=== PATIENT | male | born 1940 | race Caucasian/White ===

== ENCOUNTER → 2022-05-14 | Outpatient (CLI) | payer OTHER ==
--- NOTE | 2022-05-14 15:00 | CT ---
EXAMINATION TYPE: CT sinus wo con DATE OF EXAM: 05/14/2022 COMPARISON: None HISTORY: R42 DIZZINESS AND GIDDINESS Unenhanced CT of the paranasal sinuses was performed in the axial and coronal planes. Bone and soft tissue settings are submitted. The paranasal sinuses demonstrate normal aeration and development. Mild mucoperiosteal thickening involving the maxillary sinuses. Opacification right anterior superior ethmoid air cells. There is also opacification of the right ostiomeatal unit. Left ostiomeatal unit is patent. Remaining paranasal sinuses are well-aerated. The nasal septum is midline. No bony destructive changes are seen within the field of view. IMPRESSION: Chronic sinusitis as noted with obstruction of the right ostiomeatal unit.
--- NOTE | 2022-05-14 15:44 | CT ---
EXAMINATION TYPE: CT brain wo con DATE OF EXAM: 05/14/2022 COMPARISON: None HISTORY: 81-year-old male R42, dizziness and giddiness TECHNIQUE: Examination was done in axial plane without intravenous contrast. Coronal and sagittal r econstructions performed. CT DLP: mGycm Automated exposure control for dose reduction was used. FINDINGS: There is no evidence of acute intracranial hemorrhage, acute ischemic changes, mass, mass-effect, or extra-axial fluid collection. There is no effacement of cerebral sulci or basal subarachnoid cister ns. There is no midline shift. Nascimento-white matter distinction is preserved. Mild generalized supratentorial volume loss. Mild ventricular prominence likely secondary to central cerebral atrophy. Mild white matter hypodensities in both cerebral hemispheres. After scattered calci fications in the bilateral carotid siphons and proximal V4 segments bilateral vertebral arteries. Mastoid air cells remain pneumatized. Paranasal sinuses reported separately rightward nasal septal deviation. IMPRESSION: Mild generalized atrophy and mild burden of chronic small vessel ischemic disease. No acute intracran ial abnormality seen. Paranasal sinuses reported separately. Rightward nasal septal deviation.
== END | disposition home or self-care (01) ==
LOC: RADCTMAIN 13:41
DX: J32.9 Chronic sinusitis, unspecified (principal); J34.89 Other specified disorders of nose and nasal sinuses
CPT/HCPCS: 70450; 70486

== ENCOUNTER → 2023-02-09 | Outpatient (CLI) | payer OTHER ==
[2023-02-09 14:42] LABS: African American GFR (CKD) >90 (>60 ml/min/1.73 sqM); Blood Urea Nitrogen 14 mg/dL (9-20); Non-African American GFR(CKD) 84 (>60 ml/min/1.73 sqM)
--- NOTE | 2023-02-09 18:38 | CT ---
EXAMINATION TYPE: CT abdomen wo/w con CT DLP: 2648.90 mGycm, Automated exposure control for dose reduction was used. DATE OF EXAM: 02/09/2023 3:16 PM COMPARISON: None CLINICAL INDICATION:Male, 82 years old with history of R10.10 abdominal pain; upper abdominal pain x few weeks. TECHNIQUE: Standard CT of the abdomen before and after the uneventful administration of 100 cc of I sovue-300 intravenous contrast. Oral contrast was administered. Coronal and sagittal reformats were p erformed. FINDINGS: LOWER CHEST: Visualized lung bases are clear. Coronary artery calcifications. ABDOMEN LIVER: Calcified granulomas within the left hepatic lobe. Right hepatic lobe 1.5 cm cyst. GALLBLADDER AND BILE DUCTS: Unremarkable. PANCREAS: Unremarkable. SPLEEN: Couple of calcified granulomas. Subcentimeter hypodense focus within the superior aspect whic h is too small characterize but likely represents a benign lesion. ADRENAL GLANDS: Unremarkable. KIDNEYS AND URETERS: No evidence of hydronephrosis or renal calculus. The is enhance symmetrically. S ubcentimeter hypodense focus within the cortex of the left kidney which is too small characters but l ikely represents a cyst. Contrast is demonstrated within both collecting systems on the delayed phase . STOMACH AND BOWEL: Stomach and duodenum are unremarkable.Colonic diverticulosis without evidence for acute diverticulitis. Enteric contrast reaches the mid small bowel. No evidence of bowel obstruction. PERITONEUM: No evidence of pneumoperitoneum or free fluid. VASCULATURE: Moderate atherosclerotic calcifications are present throughout the abdominal aorta and i ts branches. No evidence of aortic aneurysm. Infrarenal abdominal aortic ectasia measuring up to 2.6 cm. MUSCULOSKELETAL: No acute osseous abnormalities. Mild disc degeneration changes are present throughou t the thoracolumbar spine. LYMPH NODES: No gross evidence for lymphadenopathy. SOFT TISSUE/ABDOMINAL WALL: Unremarkable IMPRESSION: 1. No acute abdominal process. 2. Colonic diverticulosis without evidence for acute diverticulitis. 3. Infrarenal abdominal aortic ectasia measuring up to 2.6 cm.
== END | disposition home or self-care (01) ==
LOC: RADCTMAIN 13:44
DX: I77.811 Abdominal aortic ectasia (principal); K57.30 Diverticulosis of large intestine without perforation or abscess without bleeding; R10.10 Upper abdominal pain, unspecified
CPT/HCPCS: 82565; 84520; 74170; 36415; Q9967

== ENCOUNTER → 2023-10-21 | Outpatient (CLI) | payer OTHER ==
--- NOTE | 2023-10-26 16:16 | CT ---
EXAMINATION TYPE: CT brain wo con CT DLP: 1147.30 mGycm, Automated exposure control for dose reduction was used. DATE OF EXAM: 10/21/2023 11:18 AM COMPARISON: 05/14/2022 CT brain. CLINICAL INDICATION:Male, 82 years old with history of R42 DIZZINESS AND GIDDINESS, dizziness and gid diness, sinus problems TECHNIQUE: Brain: Axial CT images of the brain were obtained with coronal and sagittal reformats created and rev iewed. Contrast used: None. Oral contrast used: None. FINDINGS: Brain: Extra-axial spaces: No abnormal extra-axial fluid collections. Ventricular system: Ventricles and sulci are consistent with age-related involution. Cerebral parenchyma: No acute intraparenchymal hemorrhage or mass effect. The new-white junction is well differentiated. Cerebellum: Unremarkable. Mass effect: No evidence of midline shift. Intracranial vasculature: unremarkable Soft tissues: Normal. Calvarium/osseous structures: No depressed skull fracture. Paranasal sinuses and mastoid air cells: Moderate pansinusitis. Visualized orbits: Orbital contents are intact. IMPRESSION: No acute intracranial process. Pansinusitis
== END | disposition home or self-care (01) ==
LOC: RADCTMAIN 09:46
PROVIDERS: ATTEND Family Medicine
DX: J32.4 Chronic pansinusitis (principal)
CPT/HCPCS: 70450

== ENCOUNTER 2024-09-14 18:26 | Inpatient (IN) | payer OTHER, MEDICARE ==
[2024-09-14 19:04] LABS: Basophils % (A) 0 %; Eosinophils # (A) 0.3 k/uL (0-0.7); Eosinophils % (A) 5 %; HCT 38.5 % (39.0-53.0); HGB 12.7 gm/dL (13.0-17.5); Lymphocytes # (A) 1.2 k/uL (1.0-4.8); Lymphocytes % (A) 22 %; MCH 33.3 pg (25.0-35.0); MCHC 32.9 g/dL (31.0-37.0); Macrocytosis Slight; Mean Platelet Volume 8.7; Monocytes # (A) 0.2 k/uL (0-1.0); Monocytes % (A) 5 %; Neutrophils # (A) 3.6 k/uL (1.3-7.7); Neutrophils % (A) 66 %; Platelet Count 165 k/uL (150-450); RBC 3.81 m/uL (4.30-5.90); WBC 5.4 k/uL (3.8-10.6)
[2024-09-14 19:17] LABS: ALT 13 U/L (4-49); AST 22 U/L (17-59); African American GFR (CKD) >90 (>60 ml/min/1.73 sqM); Albumin 4.2 g/dL (3.5-5.0); Alcohol <10 mg/dL; Alkaline Phosphatase 63 U/L (38-126); Anion Gap 12 mmol/L; Blood Urea Nitrogen 7 mg/dL (9-20); Calcium 9.5 mg/dL (8.4-10.2); Carbon Dioxide 25 mmol/L (22-30); Chloride 103 mmol/L (98-107); Creatine Kinase 39 U/L (55-170); Glucose 93 mg/dL (74-99); Non-African American GFR(CKD) 88 (>60 ml/min/1.73 sqM); Potassium 4.1 mmol/L (3.5-5.1); Sodium 140 mmol/L (137-145); Total Bilirubin 0.7 mg/dL (0.2-1.3); Total Protein 6.5 g/dL (6.3-8.2)
[2024-09-14 19:19] LABS: INR 1.4 (<1.2); Partial Thromboplastin Time 29.6 sec (22.0-30.0); Prothrombin Time 14.7 sec (10.0-12.5)
[2024-09-14] MEDS: SODIUM CHLORIDE 0.9% 500 ML 500 ML IV STA (19:23)
--- NOTE | 2024-09-14 19:23 | CT ---
EXAMINATION TYPE: CT brain wo con DATE OF EXAM: 09/14/2024 COMPARISON: CT brain Oct 21 2023 CLINICAL INDICATION: Male, 83 years old with history of Neuro deficit, acute, stroke suspected, Aphas ia. TECHNIQUE: CT scan of the head is performed without contrast. CT DLP: 1204 mGycm. Automated Exposure Control for Dose Reduction was Utilized. FINDINGS: There is no acute intracranial hemorrhage or midline shift identified. There is moderate diffuse ventricular and sulcal prominence redemonstrated. There is mild low-attenuation in the periv entricular white matter redemonstrated. Bilateral aphakia is redemonstrated. Mild to moderate mucosal thickening bilateral maxillary sinuses on current study. Mild mucosal thickening anterior ethmoid si nuses bilaterally on current study. Paranasal sinus findings improved from prior CT. Nasal septal dev iation again seen. IMPRESSION: No acute intracranial hemorrhage or midline shift. If clinical concern for acute stroke persist further investigation with MRI study may BE warranted. [facility], , 09/14/2024 7:21 PM
[2024-09-14 19:30] LABS: Appearance,Urine Clear (Clear); Bilirubin,Urine Negative (Negative); Blood,Urine Negative (Negative); Color,Urine Colorless; Glucose,Urine (UA) Negative (Negative); Ketones,Urine Negative (Negative); Leukocyte Esterase,Urine Negative (Negative); Nitrite,Urine Negative (Negative); PH, Urine 6.5 (5.0-8.0); Protein,Urine Negative (Negative); Specific Gravity,Urine 1.003 (1.001-1.035); Urobilinogen,Urine <2.0 mg/dL (<2.0)
--- NOTE | 2024-09-14 19:31 | XR ---
EXAMINATION TYPE: XR chest 2V DATE OF EXAM: 09/14/2024 CLINICAL INDICATION: Male, 83 years old with history of altered mental status, TECHNIQUE: Frontal and lateral views of the chest are obtained. COMPARISON: None FINDINGS: Suboptimal study due to large body habitus. There is cardiomegaly with likely small bilater al pleural effusions. No suspicious focal airspace opacity or pneumothorax seen. The osseous structu res are intact. IMPRESSION: Correlate for suspected CHF exacerbation/fluid overload state. [facility], , 09/14/2024 7:28 PM
--- NOTE | 2024-09-14 19:40 | CT ---
EXAMINATION TYPE: CT angio head neck DATE OF EXAM: 09/14/2024 COMPARISON: NONE CLINICAL INDICATION: Male, 83 years old with history of Neuro deficit, acute, stroke suspected, [place]phas [place]., TECHNIQUE: CTA scan of the head and neck is performed with IV Contrast, patient injected with 100 ml mL of Isovue 300, axial images are obtained, coronal and sagittal reformatted images are reviewed. 3 D reconstructed images are created on an independent workstation and reviewed. NASCET criteria was us ed in interpretation of this exam? CT DLP: 701 mGycm. Automated Exposure Control for Dose Reduction was Utilized. FINDINGS: Vertebral arteries: There are areas of significant narrowing in the distal right vertebral artery. Vertebral artery dominance: Left vertebral artery is dominant Basilar artery: The basilar artery is intact. The basilar artery bifurcation is normal. Internal Carotid arteries: Severe peripheral calcified plaque distal internal carotid arteries bilate rally. There is asymmetric diminished flow in the right anterior cerebral artery. Small caliber but patent a nterior communicating artery is seen. Hypoplastic bilateral posterior indicating arteries. Dural sinuses: Patent. CTA NECK: Right Carotid System: The common carotid artery and external carotid artery are patent. The carotid bifurcation demonstrate s no evidence of hemodynamically significant stenosis. Mild peripheral calcified plaque at the caroti d bulb level. The remaining portions of the internal carotid artery demonstrate normal size without s ignificant narrowing. Left Carotid System: The common carotid artery and external carotid artery are patent. The carotid bifurcation demonstrate s no evidence of hemodynamically significant stenosis. Mild peripheral calcified plaque at the caroti d bulb level. The remaining portions of the internal carotid artery demonstrate normal size without s ignificant narrowing. Vertebral arteries are patent without evidence hemodynamically significant stenosis. There is a three-vessel aortic arch. The origins of the great vessels are patent. No evidence of hemo dynamically significant stenosis. IMPRESSION: 1. Asymmetric diminished or poor flow in the right anterior cerebral artery. Consider further invest igation to rule out ischemic change at this level with MRI or CT perfusion. 2. No significant stenosis at carotid bulb level bilaterally. [facility], , 09/14/2024 7:38 PM
[2024-09-14] MEDS: ASPIRIN 325 MG TAB PO STA (20:46)
--- NOTE | 2024-09-14 21:16 | ED ---
General Adult HPI - General Chief complaint: Altered Mental Status Stated complaint: stroke-like symptoms Time Seen by Provider: 09/14/24 18:35 Source: patient, EMS, RN notes reviewed, old records reviewed Mode of arrival: EMS Limitations: no limitations - History of Present Illness Initial comments: Patient is an 83-year-old male who presents emergency department for possible strokelike symptoms. He has a history of A-fib on Coumadin, hypertension, hyperlipidemia. Last known well was approximately 2-3 hours prior to arrival. Patient apparently called family member shortly prior to arrival and they were concerned because he was having some slurred speech. Patient states he was also having some right leg weakness/numbness and felt off balance. EMS was called. Patient states that his symptoms have since resolved. Has no acute complaints at this time.Denies chest pain or shortness of breath. Denies blurry vision or weakness. Has no other acute complaints. States he was drinking some beers this evening as well. Presents for further evaluation at this time. Family is at bedside and corroborates that the patient is currently at his normal baseline. - Related Data Home Medications Medication Instructions Recorded Confirmed Acetaminophen [Tylenol Extra 1,000 mg PO DIRECTED PRN 02/10/23 02/13/23 Strength] Ascorbic Acid [Vitamin C] 1,000 mg PO DAILY 02/10/23 02/13/23 Losartan Potassium [Cozaar] 100 mg PO PC-SUPPER 02/10/23 02/13/23 Multivitamins, Thera [Multivitamin 1 tab PO DAILY 02/10/23 02/13/23 (formulary)] Pantoprazole [Protonix] 40 mg PO PC-SUPPER 02/10/23 02/13/23 Pravastatin Sodium [Pravachol] 40 mg PO PC-SUPPER 02/10/23 02/13/23 Stool Softner 1 dose PO DIRECTED PRN 02/10/23 02/13/23 Warfarin [Coumadin] 5 mg PO PC-SUPPER 02/10/23 02/13/23 Allergies Allergy/AdvReac Type Severity Reaction Status Date / Time adhesive tape AdvReac Unknown Rash, and Verified 02/13/23 10:33 peels skin Review of Systems ROS Statement: Those systems with pertinent positive or pertinent negative responses have been documented in the HPI. Review of Systems: CONST: Denies fever EYES: Denies blurry vision ENT: Denies nasal congestion C/V: Denies Chest pain RESP: Denies shortness of breath GI: Denies abdominal pain : Denies dysuria SKIN: Denies rash. MSK: Denies joint pain. NEURO: Denies headache ROS Other: All systems not noted in ROS Statement are negative. Past Medical History Past Medical History: Atrial Fibrillation, GERD/Reflux, Hyperlipidemia, Hypertension History of Any Multi-Drug Resistant Organisms: None Reported Past Surgical History: No Surgical Hx Reported Past Psychological History: No Psychological Hx Reported Smoking Status: Never smoker Past Alcohol Use History: Occasional Past Drug Use History: None Reported General Exam - General Exam Comments Initial Comments: General: Appears in no acute distress. HEAD: Normal with no signs of head trauma. EYES: PERRLA, EOMI, conjunctiva normal, no discharge. Pupils 2 mm and equal bilaterally. ENT: Hearing grossly intact, normal oropharynx. RESPIRATORY: Clear breath sounds bilaterally. No wheezes, rales, or rhonchi. C/V: Regular rate and rhythm. S1 and S2 auscultated, no edema, peripheral pulses 2+ and intact throughout ABD: Abd is soft, nontender, nondistended EXT: Normal range of motion, no obvious deformity SKIN: No rashes or lesions observed on exposed skin. NEURO: Alert and oriented x 4. NIH is currently 0. No obvious focal deficits. Limitations: no limitations Course Vital Signs 09/14/24 09/14/24 18:33 21:48 Temperature 98.3 F Pulse Rate 74 99 Respiratory 18 18 Rate Blood Pressure 180/93 164/77 O2 Sat by Pulse 97 98 Oximetry Medical Decision Making - Medical Decision Making Was pt. sent in by a medical professional or institution (, PA, ICU REGISTERED NURSE, urgent care, hospital, or correction...) When possible be specific @ -No Did you speak to anyone other than the patient for history (EMS, parent, family, police, friend...)? What history was obtained from this source @ -Spoke with patient's son and other family members that corroborate that patient is currently at his normal baseline mental status. Did you review nursing and triage notes (agree or disagree)? Why? @ -I reviewed and agree with nursing and triage notes Were old charts reviewed (outside hosp., previous admission, EMS record, old EKG, old radiological studies, urgent care reports/EKG's, correction records)? Report findings @ -Old charts reviewed showing patient is on Coumadin. Differential Diagnosis (chest pain, altered mental status, abdominal pain women, abdominal pain men, vaginal bleeding, weakness, fever, dyspnea, syncope, headache, dizziness, GI bleed, back pain, seizure, CVA, palpatations, mental health, musculoskeletal)? @ -Differential CVA Ischemic stroke, hemorrhagic stroke, brain tumor, atypical migraine, Wernicke's encephalopathy, seizure, multiple sclerosis, meningitis, encephalitis, hypoglycemia, Guillain-Albright, electrolytes disturbance, myasthenia gravis.... This is not meant to be an all-inclusive list EKG interpreted by me (3pts min.). @ -As above X-rays interpreted by me (1pt min.). @ -Chest x-ray shows mild pulmonary vascular congestion. CT interpreted by me (1pt min.). @ -CT brain shows no obvious acute intracranial process. CT angiogram shows no large vessel occlusion present. Patient does have asymmetric diminished report flow in the right anterior cerebral artery with recommendation of MRI or CT perfusion. Unknown chronicity. U/S interpreted by me (1pt. min.). @ -None done What testing was considered but not performed or refused? (CT, X-rays, U/S, la bs)? Why? @ -None What meds were considered but not given or refused? Why? @ -Consider thrombolytic therapy however patient has an NIH of 0 and also takes blood thinners and also is greater than age 80. Risks far outweigh the benefits and therefore patient was not administered this medication. Did you discuss the management of the patient with other professionals (professionals i.e. , PA, ICU REGISTERED NURSE, lab, RT, psych nurse, social security assessor, disposal man, teacher, armed security officer, piano case maker)? Give summary @ -Discussed with neurologist on-call, Dr. Nieto who is in agreement the plan for admission and MRI. Recommended restarting patient's Coumadin as well as dose again normal aspirin. I spoke with the admitting provider, Dr. Yen who accepted the admission. Was smoking cessation discussed for >3mins.? @ -No Was critical care preformed (if so, how long)? @ -Yes, 31 minutes. Were there social determinants of health that impacted care today? How? (Homelessness, low income, unemployed, alcoholism, drug addiction, transportation, low edu. Level, literacy, decrease access to med. care, halfway, re hab)? @ -No Was there de-escalation of care discussed even if they declined (Discuss DNR or withdrawal of care, Hospice)? DNR status @ -No What co-morbidities impacted this encounter? (DM, HTN, Smoking, COPD, CAD, Cancer, CVA, ARF, Chemo, Hep., AIDS, mental health diagnosis, sleep apnea, morbid obesity)? @ -Atrial fibrillation, hypertension, hyperlipidemia Was patient admitted / discharged? Hospital course, mention meds given and route, prescriptions, significant lab abnormalities, going to OR and other pertinent info. @ -Based on patient's presentation and physical exam, presents with strokelike symptoms. They resolved by the time the patient presents to the emergency department. Last known well was approximately 2 to 3 hours prior to arrival. However as patient's NIH is currently 0, he is not a candidate for thrombolytic medication as risks for outweigh benefits. Patient also is on blood thinners and is over the age of 78. He expresses understanding. For the same reason maine t NIH is 0, patient does not meet criteria for stroke activation however we will obtain stroke workup. They were in agreement this plan. Vitals within acceptable limits. Patient's laboratory studies revealed no obvious acute process. Patient does have a subtherapeutic INR. Patient CT brain shows no obvious acute process. Chest x-ray shows possible pulmonary vascular congestion however patient is asymptomatic. CT angiogram has no large vessel occlusion but does have right sided LEO diminished blood flow. No obvious occlusion. Patient remains NIH of 0 at this time. I discussed the results with the on-call neurologist, Dr. Nieto who is in agreement plan for admission, aspirin 325 mg, as well as restarting the patient's Coumadin. This was all done. MRI was ordered for the patient as well. Patient was in agreement plan for admission. I spoke with the admitting provider, Dr. Yen who accepted the admission. Undiagnosed new problem with uncertain prognosis? @ -No Drug Therapy requiring intensive monitoring for toxicity (Heparin, Nitro, Insulin, Cardizem)? @ -No Were any procedures done? @ -No Diagnosis/symptom? @ -TIA Acute, or Chronic, or Acute on Chronic? @ -Acute Uncomplicated (without systemic symptoms) or Complicated (systemic symptoms)? @ -Complicated Side effects of treatment? @ -No Exacerbation, Progression, or Severe Exacerbation? @ -No Poses a threat to life or bodily function? How? (Chest pain, [place], [place], pneumonia, PE, COPD, DKA, ARF, appy, cholecystitis, CVA, Diverticulitis, Homicidal, Suicidal, threat to staff... and all critical care pts) @ -Potentially, yes - Lab Data Result diagrams: 09/14/24 18:55 09/14/24 18:55 Lab Results 09/14/24 09/14/24 09/14/24 Range/Units 18:55 18:55 18:55 WBC 5.4 (3.8-10.6) k/uL RBC 3.81 L (4.30-5.90) m/uL Hgb 12.7 L (13.0-17.5) gm/dL Hct 38.5 L (39.0-53.0) % MCV 101.0 H (80.0-100.0) fL MCH 33.3 (25.0-35.0) pg MCHC 32.9 (31.0-37.0) g/dL RDW 14.0 (11.5-15.5) % Plt Count 165 (150-450) k/uL MPV 8.7 Neutrophils % 66 % Lymphocytes % 22 % Monocytes % 5 % Eosinophils % 5 % Basophils % 0 % Neutrophils # 3.6 (1.3-7.7) k/uL Lymphocytes # 1.2 (1.0-4.8) k/uL Monocytes # 0.2 (0-1.0) k/uL Eosinophils # 0.3 (0-0.7) k/uL Basophils # 0.0 (0-0.2) k/uL Macrocytosis Slight PT 14.7 H (10.0-12.5) sec INR 1.4 H (<1.2) APTT 29.6 (22.0-30.0) sec Sodium (137-145) mmol/L Potassium (3.5-5.1) mmol/L Chloride (98-107) mmol/L Carbon Dioxide (22-30) mmol/L Anion Gap mmol/L BUN (9-20) mg/dL Creatinine (0.66-1.25) mg/dL Est GFR (CKD-EPI)AfAm (>60 ml/min/1.73 sqM) Est GFR (CKD-EPI)NonAf (>60 ml/min/1.73 sqM) Glucose (74-99) mg/dL Calcium (8.4-10.2) mg/dL Total Bilirubin (0.2-1.3) mg/dL AST (17-59) U/L ALT (4-49) U/L Alkaline Phosphatase (38-126) U/L Creatine Kinase (55-170) U/L Total Protein (6.3-8.2) g/dL Albumin (3.5-5.0) g/dL Urine Color Colorless Urine Appearance Clear (Clear) Urine pH 6.5 (5.0-8.0) Ur Specific [place] 1.003 (1.001-1.035) Urine Protein Negative (Negative) Urine Glucose (UA) Negative (Negative) Urine Ketones Negative (Negative) Urine Blood Negative (Negative) Urine Nitrite Negative (Negative) Urine Bilirubin Negative (Negative) Urine Urobilinogen <2.0 (<2.0) mg/dL Ur Leukocyte Esterase Negative (Negative) Serum Alcohol mg/dL 09/14/24 Range/Units 18:55 WBC (3.8-10.6) k/uL RBC (4.30-5.90) m/uL Hgb (13.0-17.5) gm/dL Hct (39.0-53.0) % MCV (80.0-100.0) fL MCH (25.0-35.0) pg MCHC (31.0-37.0) g/dL RDW (11.5-15.5) % Plt Count (150-450) k/uL MPV Neutrophils % % Lymphocytes % % Monocytes % % Eosinophils % % Basophils % % Neutrophils # (1.3-7.7) k/uL Lymphocytes # (1.0-4.8) k/uL Monocytes # (0-1.0) k/uL Eosinophils # (0-0.7) k/uL Basophils # (0-0.2) k/uL Macrocytosis PT (10.0-12.5) sec INR (<1.2) APTT (22.0-30.0) sec Sodium 140 (137-145) mmol/L Potassium 4.1 (3.5-5.1) mmol/L Chloride 103 (98-107) mmol/L Carbon Dioxide 25 (22-30) mmol/L Anion Gap 12 mmol/L BUN 7 L (9-20) mg/dL Creatinine 0.67 (0.66-1.25) mg/dL Est GFR (CKD-EPI)AfAm >90 (>60 ml/min/1.73 sqM) Est GFR (CKD-EPI)NonAf 88 (>60 ml/min/1.73 sqM) Glucose 93 (74-99) mg/dL Calcium 9.5 (8.4-10.2) mg/dL Total Bilirubin 0.7 (0.2-1.3) mg/dL AST 22 (17-59) U/L ALT 13 (4-49) U/L Alkaline Phosphatase 63 (38-126) U/L Creatine Kinase 39 L (55-170) U/L Total Protein 6.5 (6.3-8.2) g/dL Albumin 4.2 (3.5-5.0) g/dL Urine Color Urine Appearance (Clear) Urine pH (5.0-8.0) Ur Specific [place] (1.001-1.035) Urine Protein (Negative) Urine Glucose (UA) (Negative) Urine Ketones (Negative) Urine Blood (Negative) Urine Nitrite (Negative) Urine Bilirubin (Negative) Urine Urobilinogen (<2.0) mg/dL Ur Leukocyte Esterase (Negative) Serum Alcohol <10 mg/dL - EKG Data -: EKG Interpreted by Me EKG Comments: 12-lead Electrocardiogram Interpretation Note EKG was reviewed and interpreted by myself. 12-lead ECG performed at 1842 is interpreted by me as revealing atrial fibrillation at a rate of 78 beats per minute. [place] is normal. QRS duration is 108 ms, QTc is 472 ms.. There were no ST or T wave abnormalities to suggest myocardial ischemia or injury. Incomplete right bundle branch block morphology. R wave progression across the precordium was satisfactory. By my interpretation this EKG is non-diagnostic for acute ischemia. Critical Care Time Critical Care Time: Yes Total Critical Care Time: 31 Disposition Clinical Impression: TIA (transient ischemic attack) Disposition: ADMITTED IP TO THIS [facility] Condition: Stable Time of Disposition: 21:16
[2024-09-14] MEDS: WARFARIN 5 MG TAB PO ONE (21:33)
--- NOTE | 2024-09-14 22:35 | P.HPIM ---
History of Present Illness H&P Date: 09/14/24 Chief Complaint: TIA Patient is a 83-year-old male with A-fib on Coumadin, hypertension, hyperlipidemia presenting with strokelike symptoms. Patient called family members earlier today and they were concerned because he was having some slurred speech. Patient states he was working outside all day and he also noticed some right leg weakness and numbness and felt off balance. Also stated he had right arm weakness and was able to touch his face. Patient states his symptoms have resolved since then. During interview patient presents with no acute complaints. Last known well was 2-3 hours prior to arrival. Denies any fever, chills, chest pain, shortness of breath, abdominal pain, nausea, vomiting, diarrhea, urinary symptoms. CXR independently interpreted displaying small left-sided pleural effusion, cardiomegaly CT angiography head and neck displaying asymmetric diminished for poor flow in the right anterior cerebral artery, no significant stenosis at carotid bulb level bilaterally Brain CT displaying no acute intracranial hemorrhage or midline shift T 98.3 F, [place] 74, RR 18, BP 180/93, O2 saturation 97% on room air Review of systems: Pertinent positives and negatives as discussed in HPI, a complete review of systems was performed and all other systems are negative. Physical examination: Vital signs reviewed General: non toxic, no distress, appears at stated age, normal weight Derm: no unusual rashes/lesions, warm Head: atraumatic, normocephalic, symmetric Eyes: EOMI, anicteric sclera, pupils equal round reactive to light ENT: Nose and ears atraumatic Neck: No cervical lymphadenopathy, trachea midline, supple Mouth: no lip lesion, mucus membranes moist Cardiovascular: S1S2 reg, no murmur, positive dorsalis pedis pulse bilateral, no edema Lungs: CTA bilateral, no rhonchi, no rales, no accessory muscle use Abdominal: soft, nontender to palpation, no guarding Ext: muscle strength 5 out of 5 in all 4 extremities grossly, no gross muscle atrophy Neuro: CN II-XI grossly intact, no gross focal neuro deficits Psych: Alert, oriented to person, place, and time Assessment/Plan: Patient is a 83-year-old male with A-fib on Coumadin, hypertension, hyperlipidemia presenting with strokelike symptoms. ED documentation reviewed. Discussed with the patient. The patient is admitted with an anticipated less than 2 midnight stay for evaluation of TIA. #. TIA ABCD2 score of 6 CT angiography head and neck displaying asymmetric diminished for poor flow in the right anterior cerebral artery, no significant stenosis at carotid bulb level bilaterally Brain CT displaying no acute intracranial hemorrhage or midline shift Aspirin 81 mg p.o. daily Plavix 75 mg p.o. daily Atorvastatin 40 mg p.o. at bedtime Neurochecks TSH, A1c, lipid panel ordered MRI brain without contrast ordered Neurology consulted echocardiogram due to history of afib on subtheraputic coumadin #. Macrocytic anemia Hgb 12.7, MCV 101 Folate, B12 ordered No signs of acute bleeding Monitor CBC #. Hypertension resume cozaar #. Atrial fibrillation anticoagulated on warfarin INR 1.4 subtheraputic Warfarin dosed by pharmacy Monitor INR DVT prophylaxis: Warfarin per pharmacy, SCDs CODE STATUS: Full code Anticipated discharge place: Pending clinical course Dimitry Delgado MD PGY-1 IM Dictation was produced using [employer] dictation software. please excuse any grammatical, word or spelling errors. I have seen and evaluated the patient today. I Discussed the case with the resident and agree with the resident's findings I edited the assessment and plan as necessary as documented in the resident's note. Past Medical History Past Medical History: Atrial Fibrillation, GERD/Reflux, Hyperlipidemia, Hypertension History of Any Multi-Drug Resistant Organisms: None Reported Past Surgical History: No Surgical Hx Reported Past Psychological History: No Psychological Hx Reported Smoking Status: Never smoker Past Alcohol Use History: Occasional Past Drug Use History: None Reported Medications and Allergies Home Medications Medication Instructions Recorded Confirmed Type Acetaminophen [Tylenol Extra 1,000 mg PO DIRECTED PRN 02/10/23 02/13/23 History Strength] Ascorbic Acid [Vitamin C] 1,000 mg PO DAILY 02/10/23 02/13/23 History Losartan Potassium [Cozaar] 100 mg PO PC-SUPPER 02/10/23 02/13/23 History Multivitamins, Thera [Multivitamin 1 tab PO DAILY 02/10/23 02/13/23 History (formulary)] Pantoprazole [Protonix] 40 mg PO PC-SUPPER 02/10/23 02/13/23 History Pravastatin Sodium [Pravachol] 40 mg PO PC-SUPPER 02/10/23 02/13/23 History Stool Softner 1 dose PO DIRECTED PRN 02/10/23 02/13/23 History Warfarin [Coumadin] 5 mg PO PC-SUPPER 02/10/23 02/13/23 History Allergies Allergy/AdvReac Type Severity Reaction Status Date / Time adhesive tape AdvReac Unknown Rash, and Verified 02/13/23 10:33 peels skin Physical Exam Vitals: Vital Signs Temp Pulse Resp BP Pulse Ox 09/14/24 21:48 99 18 164/77 98 09/14/24 18:33 98.3 F 74 18 180/93 97 Intake and Output 09/14/24 09/14/24 09/14/24 06:59 14:59 22:59 Other: Weight 108.862 kg Results CBC & Chem 7: 09/14/24 18:55 09/14/24 18:55 Labs: Abnormal Lab Results - Last 24 Hours (Table) 09/14/24 09/14/24 09/14/24 Range/Units 18:55 18:55 18:55 RBC 3.81 L (4.30-5.90) m/uL Hgb 12.7 L (13.0-17.5) gm/dL Hct 38.5 L (39.0-53.0) % MCV 101.0 H (80.0-100.0) fL PT 14.7 H (10.0-12.5) sec INR 1.4 H (<1.2) BUN 7 L (9-20) mg/dL Creatine Kinase 39 L (55-170) U/L
[2024-09-14] MEDS: LOSARTAN 50 MG TAB PO SCH (23:08)
[2024-09-15 06:20] LABS: Basophils % (A) 1 %; Eosinophils # (A) 0.2 k/uL (0-0.7); Eosinophils % (A) 5 %; HCT 39.8 % (39.0-53.0); HGB 12.6 gm/dL (13.0-17.5); Lymphocytes # (A) 1.2 k/uL (1.0-4.8); Lymphocytes % (A) 24 %; MCH 32.6 pg (25.0-35.0); MCHC 31.7 g/dL (31.0-37.0); MCV 102.9 fL (80.0-100.0); Macrocytosis Slight; Mean Platelet Volume 9.7; Monocytes # (A) 0.3 k/uL (0-1.0); Monocytes % (A) 7 %; Neutrophils # (A) 3.2 k/uL (1.3-7.7); Neutrophils % (A) 62 %; Platelet Count 147 k/uL (150-450); RBC 3.87 m/uL (4.30-5.90); RDW 14.3 % (11.5-15.5); WBC 5.1 k/uL (3.8-10.6)
[2024-09-15 06:28] LABS: INR 1.5 (<1.2); Prothrombin Time 15.5 sec (10.0-12.5)
[2024-09-15 07:02] LABS: ALT 12 U/L (4-49); AST 19 U/L (17-59); African American GFR (CKD) >90 (>60 ml/min/1.73 sqM); Albumin 3.4 g/dL (3.5-5.0); Albumin/Globulin Ratio 1.5; Alkaline Phosphatase 62 U/L (38-126); Anion Gap 8 mmol/L; Blood Urea Nitrogen 7 mg/dL (9-20); Calcium 9.1 mg/dL (8.4-10.2); Carbon Dioxide 27 mmol/L (22-30); Chloride 103 mmol/L (98-107); Globulin 2.2 g/dL; Glucose 94 mg/dL (74-99); Magnesium 1.8 mg/dL (1.6-2.3); Non-African American GFR(CKD) 85 (>60 ml/min/1.73 sqM); Potassium 3.7 mmol/L (3.5-5.1); Sodium 138 mmol/L (137-145); Total Bilirubin 0.8 mg/dL (0.2-1.3); Total Protein 5.6 g/dL (6.3-8.2)
[2024-09-15] MEDS: CLOPIDOGREL 75 MG TAB PO SCH (09:22)
[2024-09-15] MEDS: ASPIRIN 81 MG PO SCH (09:22)
[2024-09-15] MEDS: ATORVASTATIN 40 MG TAB PO SCH (09:22)
[2024-09-15 11:01] LABS: Chol/HDL Ratio 3.99 Ratio
[2024-09-15] MEDS: ENOXAPARIN 100 MG/ML SYRINGE SQ SCH ×2 (13:57→20:44)
--- NOTE | 2024-09-15 14:34 | P.PN ---
Subjective Progress Note Date: 09/15/24 Hospital course: Patient is a very pleasant 83-year-old male with a past medical history of chronic atrial fibrillation on anticoagulation with Coumadin, hypertension, hyperlipidemia, and GERD. He presented to the emergency department on 09/14/2024 secondary to slurred speech and right-sided weakness. Upon arrival to our facility, patient underwent evaluation in the emergency department. Vital signs upon arrival show blood pressure 180/93, heart rate 74, respiratory rate 18, temp 98.3 F, and SpO2 of 97% on room air. EKG completed showing atrial fibrillation controlled ventricular rate of 78 bpm. Chest x-ray showing suboptimal study due to large but CT brain completed negative for acute intracranial process revealing mild to moderate mucosal thickening of bilateral maxillary sinuses, anterior ethmoid sinuses and and chronic nasal septal deviation. CTA neck negative showing no significant stenosis. Revealing mild cardiomegaly with small bilateral pleural effusions otherwise no suspicious focal airspace opacity reported. CTA head showing asymmetric diminished or p oor flow in the right anterior cerebral artery. Labs completed and reviewed. CBC showing bicytopenia with hemoglobin of 12.6 and platelet count of 147 with mild macrocytosis with MCV of 102.9. Coagulation profile showing subtherapeutic INR of 1.4. BMP unremarkable. Blood glucose was 93. Liver profile unremarkable. Creatinine kinase was low at 39. Urinalysis negative for infection. Serum alcohol less than 10. Patient admitted under our services with consultation to neurology. Physical exam: Patient seen and fully evaluated at bedside this morning. His speech remains clear and he continues to deny have any difficulties with word finding or speech difficulties. Denies any difficulty swallowing. Patient reports he continues to have tingling like his hand fell asleep mostly in his fingers. He denies noticing any weakness or numbness in his right upper or lower extremities. He denies having any headache, lightheadedness, dizziness, chest pain, palpitations, or shortness of breath. Vital signs reviewed and stable. General: Nontoxic, no distress and appears stated age. Derm: Skin warm and dry, normal coloration for ethnicity. Head: Atraumatic, normocephalic and symmetric. Eyes: EOM's intact, no lid lag, and anicteric sclera Mouth: no lip lesions, mucus membranes moist Cardiovascular: Irregularly irregular, murmur, positive posterior tibial pulses bilaterally, and cap refill < 2 seconds. Lungs: Respirations even, regular, and unlabored on room air. Lungs diminished otherwise no wheezing, rhonchi, rales, or crackles noted. Abdominal: soft, nontender to palpation, no guarding, no appreciable organomegaly Ext: No gross muscle atrophy, no edema, no contractures patient intact. Patient does have reports of tingling throughout right hand and fingers., Reports sensation intact and has full movement and strength of right hand upon assessment Neuro: Speech clear, face symmetrical and CN II-XII grossly intact with no noted focal neuro deficits Psych: Alert and oriented to person, place, time, and situation. Appropriate and pleasant affect. Assessment and Plan of Care: Transient aphasia and right sided weakness/tingling, rule out TIA versus CVA -Consult neurology -MRI brain without contrast -Echocardiogram completed and currently pending results. -TSH findings at 3.160, Lipid profile unremarkable, and Hgb A1c 5.4% -NIH stroke scale with neuro checks every 4 hours and as needed -Continue aspirin 81 mg daily, Plavix 75 mg daily, and atorvastatin 40 mg daily. -PT/OT consulted -Speech and language pathologist consulted -Fall precautions and provide pt with assistance as needed Chronic atrial fibrillation Subtherapeutic INR Hypertension Hyperlipidemia -INR subtherapeutic, hold off on bridging Lovenox secondary to workup for CVA and pharmacy to continue to dose Coumadin until therapeutic. -Patient may resume losartan 100 mg daily and atorvastatin 40 mg daily. GERD -Continue Protonix 40 mg daily. Data and imaging reviewed: -Morning labs reviewed. CBC showing bicytopenia with hemoglobin of 12.6 and platelet count of 147. Coagulation profile showing subtherapeutic INR of 1.5. BMP remains unremarkable. Blood glucose 94. Hemoglobin A1c 5.4%. Lipid profile unremarkable. TSH normal findings at 3.160. -Vital signs reviewed. Blood pressure 150/75, heart rate 76, respiratory rate 17, temp 98.1 F, and SpO2 of 96% on room air. CODE STATUS: Full code DVT prophylaxis: Coumadin Discussed with: Patient, patient's , and RN Anticipated discharge date: Discharge delayed while awaiting echocardiogram results and was informed that dialysis technician stated that MRI will not be completed until 09/16/2024. Anticipated discharge place: Home Patient was seen independently by Nurse Pracitioner. This document was prepared using [employer] dictation software. Please allow for errors in taper printed circuit layout, while rare they do occur. Damon Fountain [employer] rendered care for this patient independently, reviewed the findings and plan as documented in the note above. I did not physically speak with or examine the patient on this date. Objective - Vital Signs Vital signs: Vital Signs Temp 98.1 F 09/15/24 07:51 Pulse 76 09/15/24 08:36 Resp 17 09/15/24 07:51 BP 150/75 09/15/24 07:51 Pulse Ox 96 09/15/24 08:12 FiO2 Intake & Output 09/14/24 09/15/24 09/15/24 18:59 06:59 18:59 Weight 108.862 kg 108.6 kg Other: Voiding Method Toilet Toilet # Voids 2 - Labs CBC & Chem 7: 09/15/24 05:46 09/15/24 05:46 Labs: Abnormal Lab Results - Last 24 Hours (Table) 09/14/24 09/14/24 09/14/24 Range/Units 18:55 18:55 18:55 RBC 3.81 L (4.30-5.90) m/uL Hgb 12.7 L (13.0-17.5) gm/dL Hct 38.5 L (39.0-53.0) % MCV 101.0 H (80.0-100.0) fL Plt Count (150-450) k/uL PT 14.7 H (10.0-12.5) sec INR 1.4 H (<1.2) BUN 7 L (9-20) mg/dL Creatine Kinase 39 L (55-170) U/L Total Protein (6.3-8.2) g/dL Albumin (3.5-5.0) g/dL Folate (4.40-31.00) ng/mL 09/14/24 09/15/24 09/15/24 Range/Units 18:55 05:46 05:46 RBC 3.87 L (4.30-5.90) m/uL Hgb 12.6 L (13.0-17.5) gm/dL Hct (39.0-53.0) % MCV 102.9 H (80.0-100.0) fL Plt Count 147 L (150-450) k/uL PT 15.5 H (10.0-12.5) sec INR 1.5 H (<1.2) BUN (9-20) mg/dL Creatine Kinase (55-170) U/L Total Protein (6.3-8.2) g/dL Albumin (3.5-5.0) g/dL Folate 33.70 H (4.40-31.00) ng/mL 09/15/24 Range/Units 05:46 RBC (4.30-5.90) m/uL Hgb (13.0-17.5) gm/dL Hct (39.0-53.0) % MCV (80.0-100.0) fL Plt Count (150-450) k/uL PT (10.0-12.5) sec INR (<1.2) BUN 7 L (9-20) mg/dL Creatine Kinase (55-170) U/L Total Protein 5.6 L (6.3-8.2) g/dL Albumin 3.4 L (3.5-5.0) g/dL Folate (4.40-31.00) ng/mL
[2024-09-15] MEDS: ACETAMINOPHEN TAB 325 MG TAB PO PRN (15:44)
--- NOTE | 2024-09-15 17:01 | CA ---
Transthoracic Echo Report Name: Yovani Calhoun Age: 83 Gender: M : 1940 Exam Date: 09/15/2024 08:46 Exam Location: [facility] Ht (in): 69 Wt (lb): 240 Ordering Physician: Heather Yen MD Attending/Referring Phys: [id number], Yovana Art Model Isabel Betancourt, [facility] Procedure CPT: Indications: tia Cardiac Hx: A-FIB Technical Quality: Fair Contrast 1: Total Dose (mL): Contrast 2: Total Dose (mL): MEASUREMENTS (Male / Female) Normal Values 2D ECHO LV Diastolic Diameter PLAX 5.4 cm 4.2 - 5.9 / 3.9 - 5.3 cm LV Systolic Diameter PLAX 3.0 cm IVS Diastolic Thickness 1.1 cm 0.6 - 1.0 / 0.6 - 0.9 cm LVPW Diastolic Thickness 1.1 cm 0.6 - 1.0 / 0.6 - 0.9 cm LV Relative Wall Thickness 0.4 RV Internal Dim ED PLAX 1.3 cm LA Systolic Diameter LX 4.0 cm 3.0 - 4.0 / 2.7 - 3.8 cm LV Diastolic Volume MOD BP 72.3 cm??? 67 - 155 / 56 - 104 cm??? LV Systolic Volume MOD BP 31.8 cm??? - 58 / 19 - 49 cm??? LV Ejection Fraction MOD BP 56.0 % >= 55 % LV Cardiac Index MOD BP 1450.4 cm???/min???m??? LV Diastolic Volume MOD 4C 64.4 cm??? LV Systolic Volume MOD 4C 34.8 cm??? LV Ejection Fraction MOD 4C 45.9 % LV Cardiac Index MOD 4C 1060.3 cm???/min???m??? LV Diastolic Length 4C 6.6 cm LV Systolic Length 4C 5.7 cm LV Diastolic Volume MOD 2C 70.5 cm??? LV Systolic Volume MOD 2C 25.1 cm??? LV Ejection Fraction MOD 2C 64.4 % LV Cardiac Index MOD 2C 1628.8 cm???/min???m??? LV Diastolic Length 2C 7.7 cm LV Systolic Length 2C 6.6 cm LA Volume 144.8 cm??? 18 - 58 / 22 - 52 cm??? LA Volume Index 61.8 cm???/m??? 16 - 28 cm???/m??? M-MODE Aortic Root Diameter MM 2.8 cm LA Systolic Diameter MM 4.6 cm LA Ao Ratio MM 1.6 AV Cusp Separation MM 2.1 cm DOPPLER AI Peak Velocity 458.5 cm/s AI Peak Gradient 84.1 mmHg AI Pressure Half Time 790.0 ms MV Area PHT 2.5 cm??? Mitral E Point Velocity 94.4 cm/s Mitral A Point Velocity 3.3 cm/s Mitral E to A Ratio 28.3 MV Deceleration Time 306.1 ms TR Peak Velocity 263.9 cm/s TR Peak Gradient 27.9 mmHg FINDINGS Left Ventricle Left ventricular ejection fraction is estimated at 45-50 %. Normal left ventricular wall motion. Left ventricular cavity size normal. Mildly reduced global left ventricular systolic function. Right Ventricle Mild right ventricular dilatation. Right ventricular systolic pressure within normal limits. Right Atrium Severe right atrial dilatation. Left Atrium Severely increased left atrial volume. Moderately increased left atrial area. Mitral Valve Structurally normal mitral valve. Mild mitral regurgitation. No mitral stenosis. Aortic Valve Trileaflet aortic valve. Mild aortic regurgitation. No aortic stenosis. Tricuspid Valve Structurally normal tricuspid valve. No tricuspid stenosis. Mild tricuspid regurgitation. Pulmonic Valve Structurally normal pulmonic valve. Trace pulmonic regurgitation. No pulmonic stenosis. Pericardium No pericardial or pleural effusion. Aorta Normal size aortic root and proximal ascending aorta. CONCLUSIONS Indication: TIA Reduced LV systolic function Mildly dilated right ventricle No intracardiac mass Previewed by: Dr. Sanket Lawton MD (Electronically Signed) Final Date: 15 September 2024 17:00
[2024-09-15] MEDS: WARFARIN 5 MG TAB PO ONE (17:33)
[2024-09-15] MEDS: PANTOPRAZOLE 40 MG TABLET PO SCH (17:33)
[2024-09-16 06:43] LABS: INR 1.7 (<1.2); Prothrombin Time 17.2 sec (10.0-12.5)
--- NOTE | 2024-09-16 07:52 | P.CNNES ---
History of Present Illness Consult date: 09/15/24 Requesting physician: Johnathon Hassan Reason for Consult: TIA History of Present Illness: Patient is a 83-year-old right-handed male came to the hospital by ambulance yesterday at 6:26 PM for strokelike symptoms. Patient and his son provided with a history. Yesterday at home he was cooking food around 6 PM. He was sitting at the table and when he tried to get up, felt right arm and right leg was numb. He had weakness of the right leg, as he could not move the leg in the direction he wanted. He tried to walk to the bathroom, and came back and sat in the chair. He got better but was still numb. He was having trouble speaking, could not get the words out right. He also had some blurred vision. He was not able to think clearly. Due to these symptoms, they called the EMS. As per EMS flowsheet when they arrived patient was sitting in his chair not in distress. Patient states he called his family because "something did not feel right". He noticed left-sided weakness and dizziness with no prior history of stroke. Last known well was a few hours prior having "a few beers" with neighbors. Patient was alert but confused has mild slurred speech with mild facial droop. No chest pain or shortness of breath or abdominal pain. No vomiting. Patient has unsteady gait when standing. No arm drift. Patient's family arrived on the scene and advised EMS that patient had severe slurred spee ch with confusion when speaking on the phone prior to calling 911. Patient remained confused throughout the transport. Patient's vitals at the scene was blood pressure 206/104, pulse rate 78 respirations 16 saturation 98%. Blood sugar 117. Blood test shows normal WBC hemoglobin 12.7 with elevated MCV 101. Platelets are normal. INR 1.4. CMP is normal. UA negative. Blood alcohol level negat autumn. CT head showed no acute intracranial process. I personally reviewed CT head, agree with the findings. EKG showed atrial fibrillation. ED staff contacted neurointervention, but they were busy with some procedure. TNK was considered, but patient's NIH stroke scale was reported as 0. Aspirin 325 mg was recommended and to resume Coumadin for pharmacy dosing. Patient's INR was subtherapeutic 1.4. Patient states that his symptoms have mostly resolved, but right hand fingers still slightly feels numb. He is walking fine. Patient denies any previous history of strokes or TIA. Patient denies any history of tobacco use. No diabetes. He has hypertension and history of atrial fibrillation. Review of Systems All pertinent positive and negative review of systems mentioned in the HPI, otherwise unremarkable. Past Medical History Past Medical History: Atrial Fibrillation, GERD/Reflux, Hyperlipidemia, Hypertension History of Any Multi-Drug Resistant Organisms: None Reported Past Surgical History: No Surgical Hx Reported Past Anesthesia/Blood Transfusion Reactions: No Reported Reaction Past Psychological History: No Psychological Hx Reported Smoking Status: Never smoker Past Alcohol Use History: Occasional Past Drug Use History: None Reported Medications and Allergies Home Medications Medication Instructions Recorded Confirmed Type Losartan Potassium [Cozaar] 100 mg PO DAILY 02/10/23 09/15/24 History Multivitamins, Thera [Multivitamin 1 tab PO DAILY 02/10/23 09/15/24 History (formulary)] Pravastatin Sodium [Pravachol] 40 mg PO DAILY 02/10/23 09/15/24 History Warfarin [Coumadin] 5 mg PO DAILY 02/10/23 09/15/24 History Finasteride [Proscar] 5 mg PO DAILY 09/15/24 09/15/24 History Fluticasone Nasal [place] [Flonase 1 spray EA NOSTRIL BID 09/15/24 09/15/24 History Nasal [place]] Meloxicam [Mobic] 7.5 mg PO BID PRN 09/15/24 09/15/24 History Allergies Allergy/AdvReac Type Severity Reaction Status Date / Time adhesive tape Allergy Unknown Rash, and Verified 09/15/24 10:05 peels skin Iodinated Contrast Media Allergy Rash/Hives Verified 09/15/24 10:05 Physical Examination - Vital Signs Vital Signs: Vital Signs Temp Pulse Pulse Resp BP BP BP 09/15/24 09:02 67 09/15/24 08:36 76 09/15/24 08:12 09/15/24 07:51 98.1 F 76 17 150/75 150/75 09/15/24 01:59 98.2 F 74 17 151/73 09/15/24 01:30 76 17 09/14/24 22:27 97.9 F 76 17 169/80 09/14/24 21:48 99 18 164/77 09/14/24 18:33 98.3 F 74 18 180/93 Pulse Ox 09/15/24 09:02 09/15/24 08:36 09/15/24 08:12 96 09/15/24 07:51 09/15/24 01:59 94 L 09/15/24 01:30 09/14/24 22:27 97 09/14/24 21:48 98 09/14/24 18:33 97 Intake and Output 09/14/24 09/15/24 09/15/24 22:59 06:59 14:59 Intake Total 118 Balance 118 Intake: Oral 118 Other: Voiding Method Toilet Toilet # Voids 2 1 Weight 108.862 kg 108.6 kg Patient is an elderly male, in no acute distress. Patient is alert awake oriented to time place and person. Speech and language functions are normal. Patient can name and repeat very well. No aphasia or dysarthria. Attention, concentration and fund of knowledge is adequate. On cranial nerve examination, pupils are equal, round and reacting to light, visual tan are full on confrontation, with no neglect on double simultaneous stimulation. Extraocular muscles are intact with no nystagmus. Face is symmetric, tongue protrudes to the midline. Palatal elevation and sensation normal, hearing and shoulder shrug normal, facial sensation normal. On muscle strength testing, there is no pronator drift and the strength is normal in arms and legs distally and proximally. Deep tendon reflexes are symmetric 1+ and plantars downgoing. Sensory to touch is equal with no neglect on double simultaneous stimulation. Cerebellar function showed no ataxia for [id number] testing. No dysdiadochokinesia. No ataxia for [id number] testing on either side. Tone and bulk of muscles normal. Gait deferred.. On general examination, there is no carotid bruit or murmur, S1-S2 audible. Chest is clear on consultation. Abdomen is soft nontender. No organomegaly, bowel sounds present. Peripheral pulses are present. No peripheral edema. Results - Laboratory Findings CBC and BMP: 09/15/24 05:46 09/15/24 05:46 Abnormal Lab Findings: Abnormal Labs 09/14/24 09/14/24 09/14/24 18:55 18:55 18:55 RBC 3.81 L Hgb 12.7 L Hct 38.5 L MCV 101.0 H Plt Count PT 14.7 H INR 1.4 H BUN 7 L Creatine Kinase 39 L Total Protein Albumin Folate 09/14/24 09/15/24 09/15/24 18:55 05:46 05:46 RBC 3.87 L Hgb 12.6 L Hct MCV 102.9 H Plt Count 147 L PT 15.5 H INR 1.5 H BUN Creatine Kinase Total Protein Albumin Folate 33.70 H 09/15/24 05:46 RBC Hgb Hct MCV Plt Count PT INR BUN 7 L Creatine Kinase Total Protein 5.6 L Albumin 3.4 L Folate Assessment and Plan Assessment: * Probable stroke/TIA, likely from cardiac source. Patient's symptoms have mostly resolved. Current NIH stroke scale is 0. Patient was not a candidate for TNK, as his NIH stroke scale was 0 in the ER. * History of atrial fibrillation, patient came with subtherapeutic INR 1.4. * Hypertension * Hyperlipidemia Plan: MRI of the brain without contrast, evaluate for acute CVA 2-D echo revealed reduced LV systolic function with EF 45-50%. Mildly reduced global left ventricular systolic function. Severe right atrial dilation. Severely increased left atrial volume. Mildly dilated right ventricle. CTA head and neck showed: Asymmetric diminished or poor flow in the right anterior cerebral artery. Consider further investigation to rule out ischemic change at this level with MRI or CT perfusion. No significant stenosis at the carotid bulb level bilaterally. Fasting a.m. lipid panel cholesterol 170, LDL 106, HDL 42, triglycerides 107. Patient taking pravastatin 40 mg daily. Recommend optimizing LDL to target <70. Hemoglobin A1c 5.4 Optimize control of blood pressure. Avoid hypotension. Continue Coumadin. Target INR between 2-3. Patient's INR today is 1.5. Suggest bridging with Lovenox until INR is therapeutic. Patient given aspirin 325 mg in the ER. Continue aspirin 81 mg. No need for Plavix from neurology standpoint. Neuro checks every 4 hours. Telemetry monitoring rule out any arrhythmia PT, OT, speech therapy DVT prophylaxis: Patient on Coumadin Neurology will continue to follow. Thank you for the consult.
--- NOTE | 2024-09-16 10:39 | MR ---
EXAMINATION TYPE: MR brain wo con DATE OF EXAM: 09/16/2024 COMPARISON: CT brain from 2 days earlier HISTORY: Neuro deficit, acute, possible CVA vs TIA TECHNIQUE: Multiplanar, multisequence imaging of the brain and brainstem is performed without IV cont rast. FINDINGS: Diffusion weighted images demonstrate approximate 5.8 cm AP diameter by 2.7 cm transverse area of inc reased signal on diffusion-weighted imaging with diminished signal ADC map and corresponding to T1 hy pointense and T2 hyperintense area involving the superior posterior left temporal lobe extending into the parieto-occipital region consistent with acute infarct. There is additional 3 mm focus of restri cted diffusion in the deep left occipital lobe axial image 140 series 305 and linear 1.1 cm area of a cute infarct in the left thalamus suspected axial image 124 series 305. There is moderate ventricular and sulcal prominence redemonstrated. Midline structures demonstrate normal morphology. The craniocervical junction appears within normal limits. Normal vascular flow voids are present. Mild to moderate mucosal thickening involving the inf erior aspect of the bilateral maxillary sinuses is redemonstrated. Mild/moderate mucosal thickening i nvolving anterior when sinuses bilaterally is redemonstrated. Bilateral aphakia is seen. Increased fl uid signal bilateral mastoid air cells is redemonstrated. Correlate clinically to exclude mastoiditis . IMPRESSION: 1. There is fairly moderate size focal acute infarct superior posterior medial left temporal lobe wit h some parietal occipital extension as detailed above. There are 2 additional smaller foci of acute i nfarcts in the deep left occipital region and portion of the left thalamus. [facility], , 09/16/2024 10:37 AM
--- NOTE | 2024-09-16 12:23 | P.PN ---
Subjective Progress Note Date: 09/16/24 Hospital course: Patient is a very pleasant 83-year-old male with a past medical history of chronic atrial fibrillation on anticoagulation with Coumadin, hypertension, hyperlipidemia, and GERD. He presented to the emergency department on 09/14/2024 secondary to slurred speech and right-sided weakness. Upon arrival to our facility, patient underwent evaluation in the emergency department. Vital signs upon arrival show blood pressure 180/93, heart rate 74, respiratory rate 18, temp 98.3 F, and SpO2 of 97% on room air. EKG completed showing atrial fibrillation controlled ventricular rate of 78 bpm. Chest x-ray showing suboptimal study due to large but CT brain completed negative for acute intracranial process revealing mild to moderate mucosal thickening of bilateral maxillary sinuses, anterior ethmoid sinuses and and chronic nasal septal deviation. CTA neck negative showing no significant stenosis. Revealing mild cardiomegaly with small bilateral pleural effusions otherwise no suspicious focal airspace opacity reported. CTA head showing asymmetric diminished or poor flow in the right anterior cerebral artery. Labs completed and reviewed. CBC showing bicytopenia with hemoglobin of 12.6 and platelet count of 147 with mild macrocytosis with MCV of 102.9. Coagulation profile showing subtherapeutic INR of 1.4. BMP unremarkable. Blood glucose was 93. Liver profile unremarkable. Creatinine kinase was low at 39. Urinalysis negative for infection. Serum alcohol less than 10. Patient admitted under our services with consultation to neurology.MRI reporting fairly moderate-sized focal acute infarct superior posterior medial left temporal lobe with some parietal- occipital extension along with 2 additional smaller foci of acute infarcts in the deep left occipital region and portion of the left thalamus. Echocardiogram revealing reduced EF of 45-50 with mild right ventricular dilation and severely increased left atrial volume with moderately increased left atria. Physical exam: Patient seen and fully evaluated at bedside this morning. His speech remains clear and he continues to deny have any difficulties with word finding or speech difficulties. Denies any difficulty swallowing. Patient reports he continues to have tingling like sensation described as a numbness and pins and needle sensation in his right hand and reports throughout the night and morning it is also felt throughout his right leg. He denies feeling weakness and has full movement intact. Just with physical therapist, patient does have noted right foot drag with ambulation. Patient continues to deny having any headache, lightheadedness, dizziness, chest pain, palpitations, or shortness of breath. Vital signs reviewed and stable. General: Nontoxic, no distress and appears stated age. Derm: Skin warm and dry, normal coloration for ethnicity. Head: Atraumatic, normocephalic and symmetric. Eyes: EOM's intact, no lid lag, and anicteric sclera Mouth: no lip lesions, mucus membranes moist Cardiovascular: Irregularly irregular, murmur, positive posterior tibial pulses bilaterally, and cap refill < 2 seconds. Lungs: Respirations even, regular, and unlabored on room air. Lungs diminished otherwise no wheezing, rhonchi, rales, or crackles noted. Abdominal: soft, nontender to palpation, no guarding, no appreciable organomegaly Ext: No gross muscle atrophy, no edema, no contractures patient intact. Patient does have reports of tingling throughout right hand and fingers as well as right lower extremity and foot., Reports sensation intact but feels different today. He continues to have full movement and strength of RUE and RLE on examination. Neuro: Speech clear, face symmetrical and CN II-XII grossly intact with no noted focal neuro deficits Psych: Alert and oriented to person, place, time, and situation. Appropriate and pleasant affect. 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 -Echocardiogram revealing reduced EF of 45-50 with mild right ventricular dilation and severely increased left atrial volume with moderately increased left atria. -INR remains subtherapeutic at 1.7, continue bridging with Lovenox and pharmacy to continue to dose Coumadin until therapeutic with goal therapeutic range of INR 2-3. -Consult placed to hematology for possible alternative antiocoagulant options/recommendations and discussed in depth with hematology GEAR MACHINIST as patient reports he is unable to take Pradaxa, Eliquis, or Xarelto. Unclear reasoning possible antiphospholipid syndrome. -Neurology following, discussed plan of care and MRI results in depth with neurologist Dr. Nieto. -TSH findings at 3.160, Lipid profile unremarkable, and Hgb A1c 5.4% -NIH stroke scale with neuro checks every 4 hours and as needed -Continue aspirin 81 mg daily, Plavix 75 mg daily, and atorvastatin 40 mg daily. -PT/OT following, discussed pt's progress and RLE weakness with physical therapistDavonte. -Speech and language pathologist following. -Fall precautions and provide pt with assistance as needed Hypertension -Monitor vital signs and continue daily medication regimen with losartan 100 mg daily. Hyperlipidemia -Continue daily medication regimen with atorvastatin 40 mg daily. GERD -Continue Protonix 40 mg daily. Data and imaging reviewed: -Morning labs reviewed. INR remains subtherapeutic at 1.7. -Vital signs reviewed. Blood pressure 159/91, heart rate 66, respiratory rate 16, temp 98.8 F, and SpO2 of 98% on room air -MRI reporting fairly moderate-sized focal acute infarct superior posterior medial left temporal lobe with some parietal-occipital extension along with 2 additional smaller foci of acute infarcts in the deep left occipital region and portion of the left thalamus. -Echocardiogram revealing reduced EF of 45-50 with mild right ventricular dilation and severely increased left atrial volume with moderately increased left atria. CODE STATUS: Full code DVT prophylaxis: Coumadin Discussed with: Patient, patient's , RN, hematology GEAR MACHINIST and neurologist. Anticipated discharge date: Pending clinical course. Patient with multiple acute infarcts, will need to remain hospitalized until INR is therapeutic. Anticipated discharge place: Home Patient was seen independently by Nurse Pracitioner. This document was prepared using [employer] dictation software. Please allow for errors in cost manager, while rare they do occur. Objective - Vital Signs Vital signs: Vital Signs Temp 98.3 F 09/16/24 00:53 Pulse 66 09/16/24 02:47 Resp 17 09/16/24 02:47 BP 155/78 09/16/24 00:53 Pulse Ox 97 09/16/24 00:53 FiO2 Intake & Output 09/15/24 09/16/24 09/16/24 18:59 06:59 18:59 Intake Total 236 Balance 236 Intake: Oral 236 Other: Voiding Method Toilet Toilet # Voids 1 2 - Labs CBC & Chem 7: 09/15/24 05:46 09/15/24 05:46 Labs: Abnormal Lab Results - Last 24 Hours (Table) 09/16/24 Range/Units 05:09 PT 17.2 H (10.0-12.5) sec INR 1.7 H (<1.2)
[2024-09-16] MEDS: WARFARIN 5 MG TAB PO ONE (17:29)
--- NOTE | 2024-09-16 19:14 | P.CONS ---
History of Present Illness - Reason for Consult Consult date: 09/16/24 anticoagulation recs Requesting physician: Damon Fountain - Chief Complaint stroke like symptoms - History of Present Illness Patient is an 83-year-old male who presents emergency department for strokelike symptoms. Patient has a history of A-fib on Coumadin, hypertension, and hyperlipidemia. Patient was experiencing slurred speech at which time he called family. He also reports having some right leg weakness/numbness and felt off balance. Upon admit INR was found to be subtherapeutic at 1.4. Brain MRI noted fairly moderate size focal acute infarct superior posterior medial left temporal lobe with some parietal occipital extension. 2 additional smaller foci of acute infarcts in the deep left occipital region and portion of the left thalamus. Symptoms have since resolved and patient is at baseline. Patient has been on Coumadin for atrial fibrillation. He denies any missed doses. He states typically his Coumadin has been very well-controlled for many years and [facility]. He states he was previously on Eliquis or Xarelto and stopped medication due to side effects. Denies any known history of APLS or having followed up with hematology in the past. Patient currently on Coumadin with Lovenox bridge. We are asked to see patient for anticoagulation recommendations. Review of Systems 10 point ROS is negative except as stated in the HPI Past Medical History Past Medical History: Atrial Fibrillation, GERD/Reflux, Hyperlipidemia, Hypertension History of Any Multi-Drug Resistant Organisms: None Reported Past Surgical History: No Surgical Hx Reported Past Anesthesia/Blood Transfusion Reactions: No Reported Reaction Past Psychological History: No Psychological Hx Reported Smoking Status: Never smoker Past Alcohol Use History: Occasional Past Drug Use History: None Reported Medications and Allergies Home Medications Medication Instructions Recorded Confirmed Type Losartan Potassium [Cozaar] 100 mg PO DAILY 02/10/23 09/15/24 History Multivitamins, Thera [Multivitamin 1 tab PO DAILY 02/10/23 09/15/24 History (formulary)] Pravastatin Sodium [Pravachol] 40 mg PO DAILY 02/10/23 09/15/24 History Warfarin [Coumadin] 5 mg PO DAILY 02/10/23 09/15/24 History Finasteride [Proscar] 5 mg PO DAILY 09/15/24 09/15/24 History Fluticasone Nasal [place] [Flonase 1 spray EA NOSTRIL BID 09/15/24 09/15/24 History Nasal [place]] Meloxicam [Mobic] 7.5 mg PO BID PRN 09/15/24 09/15/24 History Allergies Allergy/AdvReac Type Severity Reaction Status Date / Time adhesive tape Allergy Unknown Rash, and Verified 09/15/24 10:05 peels skin Iodinated Contrast Media Allergy Rash/Hives Verified 09/15/24 10:05 Physical Exam Vitals: Vital Signs Temp Pulse Pulse Resp BP BP Pulse Ox 09/16/24 15:00 98.1 F 71 17 176/82 95 09/16/24 12:25 66 66 09/16/24 10:10 98.8 F 66 16 159/91 98 09/16/24 02:47 66 17 09/16/24 00:53 98.3 F 66 17 155/78 97 09/15/24 21:06 98.6 F 18 97 09/15/24 20:44 75 18 09/15/24 19:58 98.3 F 75 17 158/81 96 Intake and Output 09/16/24 09/16/24 09/16/24 06:59 14:59 22:59 Intake Total 118 Balance 118 Intake: Oral 118 Other: Voiding Method Toilet Toilet # Voids 2 1 - Constitutional General appearance: average body habitus, no acute distress - EENT Eyes: anicteric sclerae, EOMI ENT: hearing grossly normal - Respiratory breathing is even and unlabored - Cardiovascular skin warm and dry - Gastrointestinal General gastrointestinal: soft, no tenderness - Integumentary Integumentary: no cyanotic - Neurologic no focal deficits - Psychiatric Psychiatric: A&O x's 3 Results CBC & Chem 7: 09/15/24 05:46 09/15/24 05:46 Labs: Abnormal Lab Results - Last 24 Hours (Table) 09/16/24 Range/Units 05:09 PT 17.2 H (10.0-12.5) sec INR 1.7 H (<1.2) CT Scan - head: report reviewed MRI - head: report reviewed Assessment and Plan (1) TIA (transient ischemic attack) Current Visit: Yes Status: Acute Priority: High Code(s): G45.9 - TRANSIENT CEREBRAL ISCHEMIC ATTACK, UNSPECIFIED SNOMED Code(s): 299431279 Plan: TIA: Patient presented to the emergency department for strokelike symptoms. He was experiencing slurred speech and having right leg weakness/numbness and felt off balance. Patient has a history of A-fib anticoagulated with Coumadin. He denies any missed doses. He states typically his Coumadin has been very well- controlled for many years and [facility]. He was previously on Eliquis or Xarelto (unsure which?) and stopped medication due to side effects, however pt/spouse don't exactly recall reasoning stopping previous anticoagulant. Denies any known history of APLS or having followed up with hematology in the past. -Upon admit INR was found to be subtherapeutic at 1.4. -Brain MRI noted fairly moderate size focal acute infarct superior posterior medial left temporal lobe with some parietal occipital extension. 2 additional smaller foci of acute infarcts in the deep left occipital region and portion of the left thalamus. Symptoms have since resolved and patient is at baseline. -Patient currently on Coumadin with Lovenox bridge. -Discussed with patient about retrying Eliquis or Xarelto vs Lovenox, as well as ruling out APLS. Pt declined further workup and stated he wants to continue on Coumadin, and will [facility]. Recommended pt to have close f/u with his PCP with INR checks at least every q 1-2 weeks until INR is well controlled. He was agreeable to the same Discussed case and recommendations with admitting team
[2024-09-17 05:01] LABS: INR 1.7 (<1.2); Prothrombin Time 17.7 sec (10.0-12.5)
[2024-09-17 07:52] VITALS: RESP 16
[2024-09-17 09:26] LABS: HCT 37.3 % (39.6-50.0); HGB 12.6 g/dL (13.0-17.0); MCH 33.9 pg (27.0-32.0); MCHC 33.8 g/dL (32.0-37.0); MCV 100.3 FL (80.0-97.0); Mean Platelet Volume 11.4 FL (9.5-12.2); NRBC Per 100 WBC 0 X 10*3/uL (0.00-0.01); Platelet Count 154 X 10*3/uL (140-440); RBC 3.72 X 10*6/uL (4.40-5.60); RDW 13.4 % (11.5-14.5)
[2024-09-17 09:51] LABS: BUN/Creat Ratio 14.71 Ratio (12.00-20.00); Blood Urea Nitrogen 10.3 mg/dL (9.0-27.0); Calcium 8.5 mg/dL (8.7-10.3); Carbon Dioxide 24.7 mmol/L (21.6-31.8); Chloride 107 mmol/L (96-109); Glucose 110 mg/dL (70-110); Magnesium 1.8 mg/dL (1.5-2.4); Potassium 3.7 mmol/L (3.5-5.5); Sodium 141 mmol/L (135-145)
--- NOTE | 2024-09-17 12:33 | P.DS ---
Providers Date of admission: 09/14/24 21:06 Expected date of discharge: 09/17/24 Attending physician: Heather Yen MD Consults: 09/14/24 21:05 Consult Physician Routine Consulting Provider: Clari Nieto Consult Reason/Comments: TIA. 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 Patient discharged home on Eliquis 5 mg twice daily and aspirin 81 mg daily. He is discharged home with home care including PT/OT, and RN. Arrangements made by case management with [facility] care and [facility]. Patient to follow-up with neurologist and instructed no driving until cleared from primary neurologist. Subtherapeutic INR. Initially we were bridging with Lovenox and continuing Coumadin, INR remains subtherapeutic. Patient discussed with hematology and his family and made the decision to discontinue Coumadin/warfarin and be discharged home on Eliquis 5 mg twice daily. Patient received therapeutic dose of Lovenox this morning at 9 AM and after discussion with hematology patient due to begin Eliquis at 9 PM tonight. Chronic atrial fibrillation Hypertension Monitor vital signs and continue daily medication regimen with losartan 100 mg daily. Hyperlipidemia Continue daily medication regimen with atorvastatin 40 mg daily. GERD Hospital Course: Patient is a very pleasant 83-year-old male with a past medical history of chronic atrial fibrillation on anticoagulation with Coumadin, hypertension, hyperlipidemia, and GERD. He presented to the emergency department on 09/14/2024 secondary to slurred speech and right-sided weakness. Upon arrival to our facility, patient underwent evaluation in the emergency department. Vital signs upon arrival show blood pressure 180/93, heart rate 74, respiratory rate 18, temp 98.3 F, and SpO2 of 97% on room air. EKG completed showing atrial fibrillation controlled ventricular rate of 78 bpm. Chest x-ray showing suboptimal study due to large but CT brain completed negative for acute intracranial process revealing mild to moderate mucosal thickening of bilateral maxillary sinuses, anterior ethmoid sinuses and and chronic nasal septal deviation. CTA neck negative showing no significant stenosis. Revealing mild cardiomegaly with small bilateral pleural effusions otherwise no suspicious focal airspace opacity reported. CTA head showing asymmetric diminished or poor flow in the right anterior cerebral artery. Labs completed and reviewed. CBC showing bicytopenia with hemoglobin of 12.6 and platelet count of 147 with mild macrocytosis with MCV of 102.9. Coagulation profile showing subtherapeutic INR of 1.4. BMP unremarkable. Blood glucose was 93. Liver profile unremarkable. Creatinine kinase was low at 39. Urinalysis negative for infection. Serum alcohol less than 10. Patient admitted under our services with consultation to neurology.MRI reporting fairly moderate-sized focal acute infarct superior posterior medial left temporal lobe with some parietal- occipital extension along with 2 additional smaller foci of acute infarcts in the deep left occipital region and portion of the left thalamus. Echocardiogram revealing reduced EF of 45-50 with mild right ventricular dilation and severely increased left atrial volume with moderately increased left atria. Physical exam: Patient seen and fully evaluated at bedside this morning. His speech remains clear and he continues to deny have any difficulties with word finding or speech difficulties. Denies any difficulty swallowing. Patient reports he continues to have tingling like sensation described as a numbness and pins and needle sensation in his right hand and minimally to the right side of his face. He reports the tingling and weakness in his right leg has significantly improved. He denies feeling weakness and has full movement intact. Vital signs reviewed and stable. General: Nontoxic, no distress and appears stated age. Derm: Skin warm and dry, normal coloration for ethnicity. Head: Atraumatic, normocephalic and symmetric. Eyes: EOM's intact, no lid lag, and anicteric sclera Mouth: no lip lesions, mucus membranes moist Cardiovascular: Irregularly irregular, murmur, positive posterior tibial pulses bilaterally, and cap refill < 2 seconds. Lungs: Respirations even, regular, and unlabored on room air. Lungs diminished otherwise no wheezing, rhonchi, rales, or crackles noted. Abdominal: soft, nontender to palpation, no guarding, no appreciable organomegaly Ext: No gross muscle atrophy, no edema, no contractures patient intact. Patient does have reports of tingling throughout right hand and fingers as well as right lower extremity and foot., Reports sensation intact but feels different today. He continues to have full movement and strength of RUE and RLE on examination. Neuro: Speech clear, face symmetrical and CN II-XII grossly intact with no noted focal neuro deficits Psych: Alert and oriented to person, place, time, and situation. Appropriate and pleasant affect. A total of 37 minutes of time were spent preparing this complex discharge summary. Pt was discharged on 09/17/24 at 12:29 PM. Patient was seen independently by Nurse Practitioner. This document was prepared using [employer] dictation software. Please allow for errors in lunch truck driver while rare they do occur. Damon Fountain NP rendered care for this patient independently, reviewed the findings and plan as documented in the note above. I did not physically speak with or examine the patient on this date. Patient Condition at Discharge: Stable Plan - Discharge Summary Discharge Rx Participant: No New Discharge Prescriptions: New Apixaban [Eliquis] 5 mg PO BID 30 Days #60 tab Aspirin 81 mg PO DAILY 30 Days #30 tab Continue Losartan Potassium [Cozaar] 100 mg PO DAILY Multivitamins, Thera [Multivitamin (formulary)] 1 tab PO DAILY Finasteride [Proscar] 5 mg PO DAILY Pravastatin Sodium [Pravachol] 40 mg PO DAILY Fluticasone Nasal [place] [Flonase Nasal [place]] 1 spray EA NOSTRIL BID Discontinued Warfarin [Coumadin] 5 mg PO DAILY Meloxicam [Mobic] 7.5 mg PO BID PRN PRN Reason: Pain Discharge Medication List Losartan Potassium [Cozaar] 100 mg PO DAILY 02/10/23 [History] Multivitamins, Thera [Multivitamin (formulary)] 1 tab PO DAILY 02/10/23 [History] Pravastatin Sodium [Pravachol] 40 mg PO DAILY 02/10/23 [History] Finasteride [Proscar] 5 mg PO DAILY 09/15/24 [History] Fluticasone Nasal [place] [Flonase Nasal [place]] 1 spray EA NOSTRIL BID 09/15/24 [History] Apixaban [Eliquis] 5 mg PO BID 30 Days #60 tab 09/17/24 [Rx] Aspirin 81 mg PO DAILY 30 Days #30 tab 09/17/24 [Rx] Follow up Appointment(s)/Referral(s): Yeimi Solis MD [REFERRING] - 1 Week Bret Russell DO [Primary Care Provider] - 1 Week Patient Instructions/Handouts: Ischemic Stroke (DC) Activity/Diet/Wound Care/Special Instructions: Activity: As tolerated. Take breaks as needed. Diet: Heart healthy and carb consistent diet. Avoid salts, or foods with hidden salts such as canned or boxed foods and frozen dinners. Extra salt makes your heart work harder and traps the fluid in your body for longer. Special Instructions: Take all of your medications as directed and remember to keep all of your doctor's appointments and follow-up as needed. As discussed with both you and your 3 family members at bedside, you stated that you did not take Eliquis, Xarelto, on Pradaxa secondary to side effects and deny history of antiphospholipid syndrome or anything else to restrict to from taking thiese medications. You reported after discussion with your family that you made the decision to discontinue Coumadin/warfarin use and again be placed on Eliquis 5 mg twice daily. This decision was called and personally discuseed via telephone with the antenna design engineer that evaluated you yesterday and they stated you received your therapeutic Lovenox injection this morning so you will be given your first dose of Eliquis tonight at 9 PM. Be sure to take this as directed and do not miss any doses. Also as discussed at bedside both by myself and neurologist, we will hold off on additional blood pressure medications at this time recommend that you monitor y our blood pressure twice daily at home and document these findings in a daily log to bring with you to your follow-up appointment with your PCP as additional antihypertensive medications may be needed to add to your current medication regimen. No driving until cleared by primary neurologist on outpatient follow-up. Thank you for allowing us to participate in your care, it was truly a pleasure having you for our patient!!! . Discharge Disposition: HOME WITH HOME HEALTH SERVICES
--- NOTE | 2024-09-17 12:40 | P.PN ---
Subjective Progress Note Date: 09/17/24 Hospital course: Patient is a very pleasant 83-year-old male with a past medical history of chronic atrial fibrillation on anticoagulation with Coumadin, hypertension, hyperlipidemia, and GERD. He presented to the emergency department on 09/14/2024 secondary to slurred speech and right-sided weakness. Upon arrival to our facility, patient underwent evaluation in the emergency department. Vital signs upon arrival show blood pressure 180/93, heart rate 74, respiratory rate 18, temp 98.3 F, and SpO2 of 97% on room air. EKG completed showing atrial fibrillation controlled ventricular rate of 78 bpm. Chest x-ray showing suboptimal study due to large but CT brain completed negative for acute intracranial process revealing mild to moderate mucosal thickening of bilateral maxillary sinuses, anterior ethmoid sinuses and and chronic nasal septal deviation. CTA neck negative showing no significant stenosis. Revealing mild cardiomegaly with small bilateral pleural effusions otherwise no suspicious focal airspace opacity reported. CTA head showing asymmetric diminished or poor flow in the right anterior cerebral artery. Labs completed and reviewed. CBC showing bicytopenia with hemoglobin of 12.6 and platelet count of 147 with mild macrocytosis with MCV of 102.9. Coagulation profile showing subtherapeutic INR of 1.4. BMP unremarkable. Blood glucose was 93. Liver profile unremarkable. Creatinine kinase was low at 39. Urinalysis negative for infection. Serum alcohol less than 10. Patient admitted under our services with consultation to neurology.MRI reporting fairly moderate-sized focal acute infarct superior posterior medial left temporal lobe with some parietal- occipital extension along with 2 additional smaller foci of acute infarcts in the deep left occipital region and portion of the left thalamus. Echocardiogram revealing reduced EF of 45-50 with mild right ventricular dilation and severely increased left atrial volume with moderately increased left atria. Physical exam: Patient seen and fully evaluated at bedside this morning. His speech remains clear and he continues to deny have any difficulties with word finding or speech difficulties. Denies any difficulty swallowing. Patient reports he continues to have tingling like sensation described as a numbness and pins and needle sensation in his right hand and minimally to the right side of his face. He reports the tingling and weakness in his right leg has significantly improved. He denies feeling weakness and has full movement intact. Vital signs reviewed and stable. General: Nontoxic, no distress and appears stated age. Derm: Skin warm and dry, normal coloration for ethnicity. Head: Atraumatic, normocephalic and symmetric. Eyes: EOM's intact, no lid lag, and anicteric sclera Mouth: no lip lesions, mucus membranes moist Cardiovascular: Irregularly irregular, murmur, positive posterior tibial pulses bilaterally, and cap refill < 2 seconds. Lungs: Respirations even, regular, and unlabored on room air. Lungs diminished otherwise no wheezing, rhonchi, rales, or crackles noted. Abdominal: soft, nontender to palpation, no guarding, no appreciable organomegaly Ext: No gross muscle atrophy, no edema, no contractures patient intact. Patient does have reports of tingling throughout right hand and fingers as well as right lower extremity and foot., Reports sensation intact but feels different today. He continues to have full movement and strength of RUE and RLE on examination. Neuro: Speech clear, face symmetrical and CN II-XII grossly intact with no noted focal neuro deficits Psych: Alert and oriented to person, place, time, and situation. Appropriate and pleasant affect. 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 -Echocardiogram revealing reduced EF of 45-50 with mild right ventricular dilation and severely increased left atrial volume with moderately increased left atria. -INR remains subtherapeutic at 1.7, continue bridging with Lovenox and pharmacy to continue to dose Coumadin until therapeutic with goal therapeutic range of INR 2-3. -Hematology evaluated, initially patient was adamant against going back to taking Eliquis or Xarelto. Currently discussing further with family. -Neurology following, discussed plan of care and MRI results in depth with neurologist Dr. Niteo. -TSH findings at 3.160, Lipid profile unremarkable, and Hgb A1c 5.4% -NIH stroke scale with neuro checks every 4 hours and as needed -Continue aspirin 81 mg daily, Plavix 75 mg daily, and atorvastatin 40 mg daily. -PT/OT following, discussed pt's progress and RLE weakness with physical therapistDavonte. -Speech and language pathologist following. -Fall precautions and provide pt with assistance as needed Hypertension -Monitor vital signs and continue daily medication regimen with losartan 100 mg daily. Hyperlipidemia -Continue daily medication regimen with atorvastatin 40 mg daily. GERD -Continue Protonix 40 mg daily. Data and imaging reviewed: -Morning labs reviewed. INR remains subtherapeutic at 1.7. CBC showing stable microcytic anemia with hemoglobin of 12.6 and MCV of 100.3 BMP unremarkable. Magnesium 1.8. -Vital signs reviewed. Blood pressure elevated this morning prior to medication administration with blood pressure of 170/77, heart rate 65, respiratory rate 16, temp 98.7 F, and SpO2 of 96% on room air. CODE STATUS: Full code DVT prophylaxis: Coumadin Discussed with: Patient, patient's , RN, hematology [employer] SUPERVISOR and neurologist. Anticipated discharge date: Pending clinical course. Patient with multiple acute infarcts, will need to remain hospitalized until INR is therapeutic. Anticipated discharge place: Home Patient was seen independently by Nurse Pracitioner. This document was prepared using [employer] dictation software. Please allow for errors in distribution coordinator, while rare they do occur. Objective - Vital Signs Vital signs: Vital Signs Temp 98.7 F 09/17/24 07:51 Pulse 65 09/17/24 07:51 Resp 16 09/17/24 07:51 BP 170/77 09/17/24 07:51 Pulse Ox 96 09/17/24 07:51 FiO2 Intake & Output 09/16/24 09/17/24 09/17/24 18:59 06:59 18:59 Intake Total 118 Balance 118 Intake: Oral 118 Other: Voiding Method Toilet Toilet # Voids 1 2 - Labs CBC & Chem 7: 09/17/24 04:37 09/17/24 04:37 Labs: Abnormal Lab Results - Last 24 Hours (Table) 09/17/24 Range/Units 04:37 PT 17.7 H (10.0-12.5) sec INR 1.7 H (<1.2)
[2024-09-17 12:47] VITALS: BP 149/87; PULSE 75; TEMP 98.5
--- NOTE | 2024-09-17 13:21 | P.PN ---
Subjective Progress Note Date: 09/16/24 Patient was seen for follow-up. Patient's family members were also present. Patient states he is doing well. Denies any headache. He had some headache yesterday but nothing today. No new concerns. Objective - Vital Signs Vital signs: Vital Signs Temp 98.8 F 09/16/24 10:10 Pulse 66 09/16/24 12:25 Resp 16 09/16/24 10:10 BP 159/91 09/16/24 10:10 Pulse Ox 98 09/16/24 10:10 FiO2 Intake & Output 09/15/24 09/16/24 09/16/24 18:59 06:59 18:59 Intake Total 236 118 Balance 236 118 Intake: Oral 236 118 Other: Voiding Method Toilet Toilet Toilet # Voids 1 2 1 - Exam On examination patient's mental status, speech and language functions are normal. Cranial nerves revealed pupils equal, round and reacting, visual tna revealed no obvious deficit although sometimes patient neglects the right side on double simultaneous stimulation, but inconsistently. Face is symmetric and tongue protrudes to midline. On muscle strength testing, patient has right elbow flexion with upward drift. The muscle strength otherwise is normal in the arms and legs. Sensory touch is equal with no neglect. Cerebellar function showed mild dysmetria for [id number] on the right as compared to the left. Tone and bulk of muscles normal - Labs CBC & Chem 7: 09/17/24 04:37 09/17/24 04:37 Labs: Abnormal Lab Results - Last 24 Hours (Table) 09/16/24 Range/Units 05:09 PT 17.2 H (10.0-12.5) sec INR 1.7 H (<1.2) Assessment and Plan Assessment: * Acute ischemic stroke, fairly moderate size involving superior posterior medial left temporal lobe with some parietal occipital extension. There are 2 additional small foci of acute infarcts in the deep left occipital region and portion of the left thalamus. Patient was not a candidate for TNK, as his NIH stroke scale was 0 in the ER. * History of atrial fibrillation, patient came with subtherapeutic INR 1.4. * Hypertension * Hyperlipidemia Plan: * MRI of the brain without contrast, fairly moderate size involving superior posterior medial left temporal lobe with some parietal occipital extension. There are 2 additional small foci of acute infarcts in the deep left occipital region and portion of the left thalamus. * 2-D echo revealed reduced LV systolic function with EF 45-50%. Mildly reduced global left ventricular systolic function. Severe right atrial dilation. Severely increased left atrial volume. Mildly dilated right ventricle. * CTA head and neck showed: Asymmetric diminished or poor flow in the right anterior cerebral artery. Consider further investigation to rule out ischemic change at this level with MRI or CT perfusion. No significant stenosis at the carotid bulb level bilaterally. * Fasting a.m. lipid panel cholesterol 170, LDL 106, HDL 42, triglycerides 107. Patient taking pravastatin 40 mg daily. Recommend optimizing LDL to target <70. * Hemoglobin A1c 5.4 * Optimize control of blood pressure. Avoid hypotension. * Patient has been seen by multineedle shirrer. They are recommending Eliquis. Patient had previously tried Eliquis many years ago, but does not remember why it was discontinued. He believes that there were some side effects, but were not anything serious. They are considering going back to Eliquis. * Family concerned why patient's INR became subtherapeutic, that led to the stroke. On asking detailed history, it appears that patient did miss 1 dose of Coumadin about 10 days ago. And lately admits that he has also been eating more spinach, which may have resulted in lowering of INR resulting in stroke. * Patient symptoms appear slightly worse today, with right pronator drift and some visual neglect on the right. Continue neuro checks every 4 hours. * Telemetry monitoring rule out any arrhythmia * PT, OT, speech therapy * DVT prophylaxis: Patient on Coumadin
--- NOTE | 2024-09-17 13:25 | P.PN ---
Subjective Progress Note Date: 09/17/24 Patient was seen for follow-up. Patient's son and were present today. They feel patient is doing much better today. Patient denies any headache. No visual symptoms. No focal symptoms. He is able to walk and appears fairly stable. Please refer to examination below. Objective - Vital Signs Vital signs: Vital Signs Temp 98.5 F 09/17/24 12:46 Pulse 75 09/17/24 12:46 Resp 16 09/17/24 12:46 BP 149/87 09/17/24 12:46 Pulse Ox 98 09/17/24 12:46 FiO2 Intake & Output 09/16/24 09/17/24 09/17/24 18:59 06:59 18:59 Intake Total 118 Balance 118 Intake: Oral 118 Other: Voiding Method Toilet Toilet # Voids 1 2 - Exam On examination patient's mental status, speech and language functions are normal. Cranial nerves revealed pupils equal, round and reacting, visual tan revealed no visual field deficit, and no neglect on double simultaneous stimulation. Face is symmetric. On muscle strength testing, today there is no pronator drift and the strength is completely normal. Sensory to the touch is equal with no neglect. Cerebellar function showed no ataxia. Tone and bulk of muscles normal - Labs CBC & Chem 7: 09/17/24 04:37 09/17/24 04:37 Labs: Abnormal Lab Results - Last 24 Hours (Table) 09/17/24 09/17/24 09/17/24 Range/Units 04:37 04:37 04:37 RBC 3.72 L (4.40-5.60) X 10*6/uL Hgb 12.6 L (13.0-17.0) g/dL Hct 37.3 L (39.6-50.0) % MCV 100.3 H (80.0-97.0) FL MCH 33.9 H (27.0-32.0) pg PT 17.7 H (10.0-12.5) sec INR 1.7 H (<1.2) Calcium 8.5 L (8.7-10.3) mg/dL Assessment and Plan Assessment: * Acute ischemic stroke, fairly moderate size involving superior posterior medial left temporal lobe with some parietal occipital extension. There are 2 additional small foci of acute infarcts in the deep left occipital region and portion of the left thalamus. Events appear embolic in nature, likely from cardiac source from subtherapeutic INR. Patient was not a candidate for TNK, as his NIH stroke scale was 0 in the ER. * History of atrial fibrillation, patient came with subtherapeutic INR 1.4. * Hypertension * Hyperlipidemia Plan: * Hematology has seen the patient, recommending Eliquis. Patient has received L ovenox this morning. Therefore it will be stopped for the evening and patient will receive first dose of Eliquis tonight. He will continue Eliquis 5 mg twice daily. Stop Coumadin. Patient will be continued on aspirin 81 mg because of vascular disease. * MRI of the brain without contrast, fairly moderate size involving superior posterior medial left temporal lobe with some parietal occipital extension. There are 2 additional small foci of acute infarcts in the deep left occipital region and portion of the left thalamus. * 2-D echo revealed reduced LV systolic function with EF 45-50%. Mildly reduced global left ventricular systolic function. Severe right atrial dilation. Severely increased left atrial volume. Mildly dilated right ventricle. * CTA head and neck showed: Asymmetric diminished or poor flow in the right anterior cerebral artery. Consider further investigation to rule out ischemic change at this level with MRI or CT perfusion. No significant stenosis at the carotid bulb level bilaterally. * Fasting a.m. lipid panel cholesterol 170, LDL 106, HDL 42, triglycerides 107. Patient taking pravastatin 40 mg daily. Recommend optimizing LDL to target <70. * Hemoglobin A1c 5.4 * Optimize control of blood pressure. Avoid hypotension. * Patient has been seen by dredge pipe operator. They are recommending Eliquis. Patient had previously tried Eliquis many years ago, but does not remember why it was discontinued. He believes that there were some side effects, but were not anything serious. They are considering going back to Eliquis. * Family concerned why patient's INR became subtherapeutic, that led to the stro ke. On asking detailed history, it appears that patient did miss 1 dose of Coumadin about 10 days ago. And lately admits that he has also been eating more spinach, which may have resulted in lowering of INR resulting in stroke. * Patient's examination has normalized again. No focal deficits. * PT, OT, speech therapy * Neurologically clear for discharge. Recommend patient no driving until seen by neurologist outpatient in 1 to 2 weeks. Also patient needs to follow-up with his primary physician regarding close monitoring of his blood pressure. Discussed with primary team about these recommendations.
[2024-09-17] MEDS ORDERED: WARFARIN 3 MG TAB PO ONE (18:00)
== END 2024-09-17 14:28 | disposition home health service (06) | DRG 65 ==
LOC: EC 18:26 → OBSVTOIN 21:06 → 6NMEDSUR 21:06
PROVIDERS: ADMIT Internal Medicine; ATTEND Internal Medicine
DX: I63.432 Cerebral infarction due to embolism of left posterior cerebral artery (principal); G81.91 Hemiplegia, unspecified affecting right dominant side; J90 Pleural effusion, not elsewhere classified; I10 Essential (primary) hypertension; D50.9 Iron deficiency anemia, unspecified; I48.20 Chronic atrial fibrillation, unspecified; I63.442 Cerebral infarction due to embolism of left cerebellar artery; E78.5 Hyperlipidemia, unspecified; D75.89 Other specified diseases of blood and blood-forming organs; K21.9 Gastro-esophageal reflux disease without esophagitis; H53.8 Other visual disturbances; R47.81 Slurred speech; R29.700 NIHSS score 0; R79.1 Abnormal coagulation profile; Z79.1 Long term (current) use of non-steroidal anti-inflammatories (NSAID); Z79.01 Long term (current) use of anticoagulants; Z79.899 Other long term (current) drug therapy; Z91.041 Radiographic dye allergy status
CPT/HCPCS: 36415; 70450; 70496; 70498; 70551; 71046; 80048; 80053; 80061; 80320; 81003; 82550; 82607; 82746; 83036; 83735; 84443; 85025; 85027; 85610; 85730; 93005; 93306; 94760; 96361; 96372; 99291